=== PATIENT | male | born 1965 | race Caucasian/White ===

== ENCOUNTER 2023-06-02 01:47 | Inpatient (IN) | payer SELFPAY ==
[2023-06-02] MEDS ORDERED: NA CHLORIDE 0.9% 1,000 ML ONE ×3 (03:31→08:15)
[2023-06-02] MEDS ORDERED: KETOROLAC 30 MG/ML INJ ONE (03:31)
[2023-06-02] MEDS ORDERED: ONDANSETRON 4 MG/2 ML VIAL ONE ×4 (03:31→19:58)
[2023-06-02 03:35] LABS: Absolute Lymphocytes (CBC) 1.4 K/uL (0.7-4.9); Hematocrit 46.4 % (39.6-49.0); Lymphocytes % 11.3 % (15.3-44.8); MPV 8.9 fL (7.6-11.3); Platelets 259 thou/uL (152-406); RBC Red Blood Cell Count 5.04 M/uL (4.33-5.43)
[2023-06-02 03:46] LABS: Albumin 3.9 g/dL (3.4-5.0); Bilirubin Total 0.8 mg/dL (0.2-1.0); Potassium 3.7 mEq/L (3.5-5.1); Troponin High Sensitivity 14.4 pg/mL (<58.9)
[2023-06-02 04:42] LABS: Renal Epithelial <5 /HPF (None Seen); Specific Gravity 1.018 (1.005-1.030); Urine Bacteria None Seen /HPF (<20); Urine Bilirubin NEGATIVE (Negative); Urine Blood 1+ (Negative); Urine Clarity Clear (Clear); Urine Color Light-Yellow (Yellow); Urine Glucose NEGATIVE (Negative); Urine Protein NEGATIVE (Negative); Urine RBC <5 /HPF (None Seen); Urine Urobilinogen Normal (Normal)
--- NOTE | 2023-06-02 05:19 | EDPHYS ---
Physician Documentation [facility] Name: Jared Antoine Jr Age: 58 yrs Sex: Male : 1965 Arrival Date: 06/02/2023 Time: 01:47 Bed 14 Private MD: ED Physician Wally Valenzuela HPI: 06/02 02:55 This 58 yrs old Male presents to ER via Ambulatory with complaints of sp4 Abdominal Pain. 03:21 Male with history of hypertension on presents with acute onset of abdominal sp4 pain that is diffuse starting 3 days ago on Wednesday. Patient reports associated nausea bloating and initially upper abdominal pain that moved to the lower abdomen. Denied any fever or vomiting. Takes Sudafed and Tylenol as needed. Pain at this time is 6 out of 10 on a scale.. Historical: - Allergies: 02:23 No Known Allergies; jj7 - PMHx: 02:23 Hypertensive disorder; jj7 - PSHx: 02:23 BILAT KNEE; LEFT ELBOW; RIGHT ROTATOR CUFF; jj7 - Immunization history:: Adult Immunizations Client reports receiving the 2nd dose of the Covid vaccine. - Social history:: Smoking status: Patient denies any tobacco usage or history of. Patient/guardian denies using alcohol, street drugs. - Family history:: not pertinent. ROS: 03:21 Constitutional: Negative for fever, chills, and weight loss, Abdomen/GI: Positive sp4 abdominal pain positive bloating positive nausea negative vomiting negative diarrhea negative constipation negative bloody stools 03:21 All other systems are negative, Exam: 03:21 Constitutional: This is a well developed, well nourished patient who is awake, alert, sp4 and in no acute distress. Head/Face: Normocephalic, atraumatic. Eyes: Pupils equal round and reactive to light, extra-ocular motions intact. Lids and lashes normal. Conjunctiva and sclera are not injected. Cornea within normal limits. Periorbital areas with no swelling, redness, or edema. ENT: Nares patent. No nasal discharge, no septal abnormalities noted. Tympanic membranes are normal and external auditory canals are clear. Oropharynx with no redness, swelling, or masses, exudates, or evidence of obstruction, uvula midline. Mucous membranes moist. Neck: Trachea midline, no thyromegaly or masses palpated, and no cervical lymphadenopathy. Supple, full range of motion without nuchal rigidity, or vertebral point tenderness. Chest/axilla: Normal chest wall appearance and motion. Nontender with no deformity. No lesions are appreciated. Cardiovascular: Regular rate and rhythm with a normal S1 and S2. No gallops, murmurs, or rubs. Normal PMI, no JVD. No pulse deficits. Respiratory: Lungs have equal breath sounds bilaterally, clear to auscultation and percussion. No rales, rhonchi or wheezes noted. No increased work of breathing, no retractions or nasal flaring. Abdomen/GI: Soft, with normal bowel sounds. No distension or tympany. No guarding or rebound. Minimal tenderness diffusely Back: No spinal tenderness. No costovertebral tenderness. Skin: Warm, dry with normal turgor. Normal color with no rashes, no lesions, and no evidence of cellulitis. MS/ Extremity: Pulses equal, no cyanosis. Neurovascular intact. Full, normal range of motion. Neuro: Awake and alert, GCS 15, oriented to person, place, time, and situation. Cranial nerves II-XII grossly intact. Motor strength 5/5 in all extremities. Sensory grossly intact. Psych: Awake, alert, with orientation to person, place and time. Behavior, mood, and affect are within normal limits 03:21 ECG was reviewed by the Attending Physician. EKG time 0 318, normal sinus rhythm with a rate of 86, no ST elevation or depression, no ectopy. Vital Signs: 02:21 BP 157 / 108; Pulse 100; Resp 20; Temp 98.3; Pulse Ox 100% ; Weight 95.25 kg; Height 5 jj7 ft. 11 in. ; Pain 7/10; 03:49 BP 145 / 86; Pulse 78; Resp 16; Pulse Ox 100% on R/A; nw1 04:46 BP 146 / 84; Pulse 72; Resp 15; Pulse Ox 100% on R/A; nw1 05:26 BP 147 / 91; Pulse 79; Resp 15 S; Pulse Ox 100% on R/A; nw1 02:21 Body Mass Index 29.29 (95.25 kg, 180.34 cm) [facility] 02:21 Pain Scale: Adult [facility] Nirav Coma Score: 03:59 Eye Response: spontaneous(4). Motor Response: obeys commands(6). Verbal Response: nw1 oriented(5). Total: 15. MDM: 02:49 Patient medically screened. sp4 05:09 ED course: CT - Performed on: 06/02/2023 at 4:08 AM. Comparison: No prior studies were sp4 available for comparison. FINDINGS: Lung bases: The lung bases are clear. There is minimal bibasilar atelectasis and/or fibrosis. Liver: The liver is mildly enlarged and measures approximately 19 cm in craniocaudal dimension. There are multiple sharply marginated hypodense hepatic mass lesions most likely representing incidental hepatic cysts. The largest measures approximately 2.5 x 2.3 cm along the lateral aspect of the right hepatic lobe. Liver attenuation is otherwise within normal limits. The hepatic and portal veins are patent. Spleen:The spleen is normal in size, configuration and attenuation. Gallbladder and bile duct: The gallbladder is well distended and unremarkable. There is no biliary ductal dilatation. Pancreas: The pancreas is grossly normal in size and configuration. There appears to be mild peripancreatic inflammation and edema surrounding the head of the pancreas which can be seen with acute pancreatitis. Correlate with laboratory analysis. Adrenal Glands:The adrenal glands are normal in size and configuration. Kidneys:The kidneys are normal in size and configuration. There is no evidence of hydronephrosis. There is no evidence of nephrolithiasis. No definite solid or cystic renal mass lesions are identified. Stomach:The stomach is grossly normal. There is a small hiatal hernia. Bowel:The bowel gas pattern is non specific and non obstructive. There is inflammation surrounding the transverse portion of the duodenum which may be due to adjacent inflammatory changes surrounding the head of the pancreas. There is moderate fecal residue in the right hemicolon. There is occasional sigmoid colon diverticulosis. There is a normal-appearing epiploic appendage along the posterior wall of the sigmoid colon (series 201, image 74). Appendix: The appendix is normal. Free air:There is no evidence of free air. Free fluid: There is questionable trace free fluid in the posterior left lower quadrant. Vasculature: The aorta is normal in caliber and contour. The inferior vena cava is grossly unremarkable. Lymphadenopathy: No pathologic lymphadenopathy is identified. Bladder: The bladder is well distended and smooth in contour. Reproductive: The prostate gland is grossly within normal limits. [facility] [address], [facility] [phone] Fax: Final Radiology Report Name: JARED ANTOINE Age: 58y Date: 06/02/2023 3:01 AM : 1965 Study: Abdomen Pelvis W Contrast Requesting Physician: Wally Valenzuela Bones: No acute osseous abnormalities are identified. Soft tissues: No acute soft tissue abnormalities are identified. There is a fat-containing left inguinal hernia. IMPRESSION: 1. There appears to be mild peripancreatic inflammation and edema surrounding the head of the pancreas which can be seen with acute pancreatitis. Correlate with laboratory analysis. 2. Inflammation surrounding the transverse portion of the duodenum likely due to adjacent inflammatory changes surrounding the head of the pancreas. 3. Mild hepatomegaly and multiple incidental hepatic cysts. 4. Small sliding-type hiatal hernia. 5. Occasional sigmoid colon diverticulosis. 6. Fat-containing left inguinal hernia. 7. Moderate fecal residue throughout the right hemicolon. 8. Normal-appearing epiploic appendage along the posterior wall of the sigmoid colon. Correlate for focal pain in the left lower quadrant. Electronically signed by: Bhavana Reddy DO 06/02/2023 4:57. 05:19 Differential Diagnosis altered mental status, sepsis, flu. Data reviewed: vital signs, sp4 nurses notes, old medical records, lab test result(s), EKG, radiologic studies, CT scan, ultrasound. 07:01 Consideration of Admission/Observation Patient was admitted/placed on observation. sp4 Escalation of care including admission/observation considered. Management of patient was discussed with the following: Hospitalist: Admission team . ED course: US - TECHNIQUE: Real-time ultrasound of the right upper quadrant with image documentation. COMPARISON: CT abdomen pelvis June 02, 2023. FINDINGS: Gallbladder: No cholelithiasis or sludge. Common bile duct: Unremarkable as visualized. No stones. No dilation. Pancreas: Pancreas is unremarkable as visualized, limited. IMPRESSION: No cholelithiasis or sludge.. 06/02 02:49 Order name: CBC with Diff; Complete Time: 04:21 sp4 06/02 02:49 Order name: CMP; Complete Time: 04:21 sp4 06/02 02:49 Order name: Lipase; Complete Time: 04:21 4 06/02 02:49 Order name: Urinalysis w/ reflexes; Complete Time: 05:09 4 06/02 03:01 Order name: Creatine Phosphokinase; Complete Time: 04:21 4 06/02 03:01 Order name: CRP; Complete Time: 04:21 4 06/02 03:01 Order name: BNP; Complete Time: 04:21 [facility] 06/02 03:01 Order name: Troponin High Sensitivity; Complete Time: 04:21 [facility] 06/02 09:10 Order name: Triglycerides Level [facility] 06/02 10:34 Order name: Troponin High Sensitivity [facility] 06/02 15:19 Order name: Creatine Phosphokinase [facility] 06/02 15:19 Order name: Troponin High Sensitivity [facility] 06/02 03:01 Order name: CT Abd/Pelvis - IV Contrast Only [facility] 06/02 05:16 Order name: US Abdomen Limited [facility] 06/02 03:01 Order name: EKG; Complete Time: 03:02 [facility] 06/02 02:49 Order name: IV Saline Lock; Complete Time: 03:20 [facility] 06/02 02:49 Order name: Labs collected and sent; Complete Time: 03:20 [facility] 06/02 03:01 Order name: EKG - Nurse/Tech; Complete Time: 03:20 4 EC:21 Rate is 86 beats/min. Rhythm is regular, Normal Sinus Rhythm. QRS [place] is Normal. [place] sp4 interval is normal. QRS interval is normal. QT interval is normal. No Q waves. T waves are Normal. No ST changes noted. Clinical impression: Normal ECG. Interpreted by me. Reviewed by me. Administered Medications: 03:22 Drug: Ketorolac IVP 30 mg IVP once Route: IVP; Site: right antecubital; bp 05:27 Follow up: Response: No adverse reaction nw1 03:23 Drug: Ondansetron IVP 4 mg IVP once; over 2 minutes Route: IVP; Site: right antecubital;bp 05:27 Follow up: Response: No adverse reaction nw1 03:23 Drug: NS 0.9% IV 1000 ml IV at 1 bolus Per protocol; 1000 mL bolus Route: IV; Rate: 1 bp bolus; Site: right antecubital; 05:27 Follow up: Response: No adverse reaction; IV Status: Completed infusion nw1 05:26 Drug: NS 0.9% IV 1000 ml IV at 1 bolus Per protocol; 1000 mL bolus Route: IV; Rate: 1 nw1 bolus; Site: right antecubital; Disposition Summary: 06/02/23 05:19 Hospitalization Ordered Notes: Hospitalization Status: Inpatient Admission sp4 Condition: Stable sp4 Problem: new sp4 Symptoms: have improved sp4 Bed/Room Type: Standard sp4 Provider: Chandler Escalante(06/02/23 05:54) sp4 Location: Telemetry/MedSurg (Inpatient)(06/02/23 20:55) eb1 Room Assignment: [facility](06/02/23 20:55) eb1 Diagnosis - Acute pancreatitis sp4 Forms: - Medication Reconciliation Form sp4 - SBAR form sp4 - Leadership Thank You Letter sp4 Signatures: Dispatcher [employer] EDMS Raymond Hua, RN RN Liset Valdez RN RN eb1 Ranjana Allison RN RN jj7 Potepalov, Sergey, MD MD sp4 Jaquelin Reyes RN RN nw1 Corrections: (The following items were deleted from the chart) 02:25 02:23 PMHx: None; jj7 jj7 05:54 05:19 [facility] sp4 sp4 06:13 05:19 Telemetry/MedSurg (Inpatient) sp4 eb1 06:13 05:19 sp4 eb1 20:55 06:13 [facility] ER HOLD eb1 eb1 20:55 06:13 ERHOLD- eb1 eb1
--- NOTE | 2023-06-02 05:19 | ER ---
Nurse's Notes [facility] Name: Damaso Coleman Jr Age: 58 yrs Sex: Male : 1965 Arrival Date: 06/02/2023 Time: 01:47 Bed 14 Private MD: Diagnosis: Acute pancreatitis Presentation: 06/02 02:21 Chief complaint: Patient states: ABD PAIN STARTED WEDNESDAY. PAIN ALL OVER ABD AND FEELS jj7 BLOATED. NO N/V/D. Coronavirus screen: At this time, the client does not indicate any symptoms associated with coronavirus-19. Ebola Screen: No symptoms or risks identified at this time. Initial Sepsis Screen: Does the patient meet any 2 criteria? HR > 90 bpm. Yes Does the patient have a suspected source of infection? No. Patient's initial sepsis screen is negative. Risk Assessment: Do you want to hurt yourself or someone else? Patient reports no desire to harm self or others. Onset of symptoms was May 30, 2023. 02:21 Method Of Arrival: Ambulatory [facility] 02:21 Acuity: HARVINDER 3 jj7 Triage Assessment: 02:23 General: Appears in no apparent distress. comfortable, Behavior is calm, cooperative, jj7 appropriate for age. Pain: Complains of pain in abdomen Pain currently is 6 out of 10 on a pain scale. at worst was 9 out of 10 on a pain scale. GI: Abdomen is distended, Last BM was May 30, 2023. Last meal was June 01, 2023. Historical: - Allergies: 02:23 No Known Allergies; jj7 - PMHx: 02:23 Hypertensive disorder; jj7 - PSHx: 02:23 BILAT KNEE; LEFT ELBOW; RIGHT ROTATOR CUFF; jj7 - Immunization history:: Adult Immunizations Client reports receiving the 2nd dose of the Covid vaccine. - Social history:: Smoking status: Patient denies any tobacco usage or history of. Patient/guardian denies using alcohol, street drugs. - Family history:: not pertinent. Screenin:27 [facility] ED Fall Risk Assessment (Adult) History of falling in the last 3 months, jj7 including since admission No falls in past 3 months (0 pts) Confusion or Disorientation No (0 pts) Intoxicated or Sedated No (0 pts) Impaired Gait No (0 pts) Mobility Assist Device Used No (0 pt) Altered Elimination No (0 pt) Score/Fall Risk Level 0 - 2 = Low Risk Oriented to surroundings, Maintained a safe environment. Abuse screen: Denies threats or abuse. Nutritional screening: No deficits noted. Tuberculosis screening: No symptoms or risk factors identified. Assessment: 02:27 Reassessment: SEE TRIAGE ASSESSMENT. j7 03:50 Reassessment: Report received from Raymond RN, CN. Introductions made and POC reviewed nw1 with patient. Pt assessed. 03:59 Reassessment: Pt to CT via wheelchair at this time. General: Appears in no apparent nw1 distress. comfortable, well groomed, well developed, well nourished, Behavior is calm, cooperative, appropriate for age. Pain: Complains of pain in abdomen Alleviated by medications, rest, Aggravated by eating, drinking, increased activity. Cardiovascular: No deficits noted. Respiratory: No deficits noted. GI: Abdomen is tender to palpation X 4 quads. GI: Bowel sounds Reports bloating, intolerance of fluids, intolerance of food, nausea, vomiting. :. Derm: No deficits noted. No signs and/or symptoms reported regarding the dermatologic system. Musculoskeletal: No deficits noted. No signs and/or symptoms reported regarding the musculoskeletal system. Vital Signs: 02:21 BP 157 / 108; Pulse 100; Resp 20; Temp 98.3; Pulse Ox 100% ; Weight 95.25 kg; Height 5 jj7 ft. 11 in. ; Pain 7/10; 03:49 BP 145 / 86; Pulse 78; Resp 16; Pulse Ox 100% on R/A; nw1 04:46 BP 146 / 84; Pulse 72; Resp 15; Pulse Ox 100% on R/A; nw1 05:26 BP 147 / 91; Pulse 79; Resp 15 S; Pulse Ox 100% on R/A; nw1 02:21 Body Mass Index 29.29 (95.25 kg, 180.34 cm) jj7 02:21 Pain Scale: Adult jj7 [place] Coma Score: 03:59 Eye Response: spontaneous(4). Motor Response: obeys commands(6). Verbal Response: nw1 oriented(5). Total: 15. ED Course: 01:50 Patient arrived in ED. jj6 02:23 Triage completed. jj7 02:23 Arm band placed on left wrist. jj7 02:49 Wally Valenzuela MD is Attending Physician. sp4 03:14 Raymond Hua, KALIE is Primary Nurse. bp 03:17 Inserted saline lock: 20 gauge in right antecubital area, using aseptic technique. rv1 Blood collected. 03:20 Troponin High Sensitivity Sent. rv1 03:20 BNP Sent. rv1 03:20 CRP Sent. rv1 03:20 Creatine Phosphokinase Sent. rv1 03:20 CBC with Diff Sent. rv1 03:20 CMP Sent. rv1 03:20 Lipase Sent. rv1 03:51 Patient has correct armband on for positive identification. Placed in gown. Bed in low nw1 position. Call light in reach. Side rails up X2. Provided Education on: POC. 03:51 Client placed on continuous cardiac and pulse oximetry monitoring. NIBP monitoring nw1 applied. 03:51 No provider procedures requiring assistance completed. IV is patent, is intact, with nw1 fluids infusing freely, with good blood return. 04:13 CT Abd/Pelvis - IV Contrast Only In Process Unspecified. EDMS 05:17 Magdi Fernandez MD is Hospitalizing Provider. sp4 05:53 Hospitalizing Provider role handed off by Magdi Fernandez MD sp4 05:53 Chandler Escalante is Hospitalizing Provider. sp4 05:56 US Abdomen Limited In Process Unspecified. EDMS 07:01 Patient admitted, IV remains in place. nw1 Administered Medications: 03:22 Drug: Ketorolac IVP 30 mg IVP once Route: IVP; Site: right antecubital; bp 05:27 Follow up: Response: No adverse reaction nw1 03:23 Drug: Ondansetron IVP 4 mg IVP once; over 2 minutes Route: IVP; Site: right antecubital;bp 05:27 Follow up: Response: No adverse reaction nw1 03:23 Drug: NS 0.9% IV 1000 ml IV at 1 bolus Per protocol; 1000 mL bolus Route: IV; Rate: 1 bp bolus; Site: right antecubital; 05:27 Follow up: Response: No adverse reaction; IV Status: Completed infusion nw1 05:26 Drug: NS 0.9% IV 1000 ml IV at 1 bolus Per protocol; 1000 mL bolus Route: IV; Rate: 1 nw1 bolus; Site: right antecubital; Medication: 02:27 VIS not applicable for this client. jj7 Outcome: 05:19 Decision to Hospitalize by Provider. sp4 07:01 Admitted to ER Hold. Please see [facility] for further documentation. nw1 07:01 Condition: stable 07:01 Condition: stable 07:01 Instructed on the need for admit, 23:52 Patient left the ED. kl Signatures: Dispatcher [employer] EDMS Nasreen Forman RN RN Raymond Cortez RN RN Clementina Wilks [email or web address] Ranjana Allison RN RN jj7 Nila Segovia rv1 Wally Valenzuela MD MD sp4 Jaquelin Reyes RN RN nw1 Corrections: (The following items were deleted from the chart) 02:25 02:23 PMHx: None; jj7 jj7
--- NOTE | 2023-06-02 05:46 | P.HP ---
Certification for Inpatient Patient admitted to: Inpatient With expected LOS: <2 Midnights Patient will require the following post-hospital care: None Practitioner: I am a practitioner with admitting privileges, knowledge of patient current condition, hospital course, and medical plan of care. Services: Services provided to patient in accordance with Admission requirements found in Title 42 Section 412.3 of the Code of Federal Regulations Patient History Date of Service: 06/02/23 Reason for admission: Abdominal pain History of Present Illness: 58-year-old male with a past medical history of hypertension, presents to the emergency room with abdominal pain. He reports abdominal pain started 3 days ago, is progressively getting worse. He reports associated nausea, bloating. He reports lower abdominal pain., Nonradiating, no reported fever, vomiting. No reported use of alcohol. He denies chest pain, shortness of breath dizziness. Plan to admit for acute pancreatitis. Laboratory evaluation WBCs 12.80, early left shift 78.3, mild hyponatremia 133, BUN and creatinine normal, CRP elevated at 104.00, lipase normal at 26. UA normal EKG normal sinus rhythm a [address] CT of the abdomen pelvis CT - Performed on: 06/02/2023 at 4:08 AM. Comparison: No prior studies were available for comparison. FINDINGS: Lung bases: The lung bases are clear. There is minimal bibasilar atelectasis and/or fibrosis. Liver: The liver is mildly enlarged and measures approximately 19 cm in craniocaudal dimension. There are multiple sharply marginated hypodense hepatic mass lesions most likely representing incidental hepatic cysts. The largest measures approximately 2.5 x 2.3 cm along the lateral aspect of the right hepatic lobe. Liver attenuation is otherwise within normal limits. The hepatic and portal veins are patent. Spleen:The spleen is normal in size, configuration and attenuation. Gallbladder and bile duct: The gallbladder is well distended and unremarkable. There is no biliary ductal dilatation. Pancreas: The pancreas is grossly normal in size and configuration. There appears to be mild peripancreatic inflammation and edema surrounding the head of the pancreas which can be seen with acute pancreatitis. Correlate with laboratory analysis. Adrenal Glands:The adrenal glands are normal in size and configuration. Kidneys:The kidneys are normal in size and configuration. There is no evidence of hydronephrosis. There is no evidence of nephrolithiasis. No definite solid or cystic renal mass lesions are identified. Stomach:The stomach is grossly normal. There is a small hiatal hernia. Bowel:The bowel gas pattern is non specific and non obstructive. There is inflammation surrounding the transverse portion of the duodenum which may be due to adjacent inflammatory changes surrounding the head of the pancreas. There is moderate fecal residue in the right hemicolon. There is occasional sigmoid colon diverticulosis. There is a normal-appearing epiploic appendage along the posterior wall of the sigmoid colon (series 201, image 74). Appendix: The appendix is normal. Free air:There is no evidence of free air. Free fluid: There is questionable trace free fluid in the posterior left lower quadrant. Vasculature: The aorta is normal in caliber and contour. The inferior vena cava is grossly unremarkable. Ly mphadenopathy: No pathologic lymphadenopathy is identified. Bladder: The bladder is well distended and smooth in contour. Reproductive: The prostate gland is grossly within normal limits - Past Medical/Surgical History -: Hypertension - Social History CD- Drugs: No Caffeine use: Yes Place of Residence: Home Review of Systems 10-point ROS is otherwise unremarkable Physical Examination - Studies Laboratory Data (last 24 hrs) 06/02/23 06/02/23 03:17 03:17 WBC 12.80 H Hgb 15.7 Hct 46.4 Plt Count 259 Sodium 133 L Potassium 3.7 BUN 11 Creatinine 1.16 Glucose 127 H Total Bilirubin 0.8 AST 9 L ALT 24 Alkaline Phosphatase 59 Lipase 26 Assessment and Plan - Plan Assessment and plan acute pancreatitis IV fluids, as needed analgesics, IV antibiotics, trend lipase, triglycerides ordered Hypertension Resume appropriate home medications Diet n.p.o. Full code DVT Lovenox Laboratory evaluation WBCs 12.80, early left shift 78.3, mild hyponatremia 133, BUN and creatinine normal, CRP elevated at 104.00, lipase normal at 26. UA normal EKG normal sinus rhythm a [address] wave abnormality. CT of the abdomen pelvis CT - Performed on: 06/02/2023 at 4:08 AM. Comparison: No prior studies were available for comparison. FINDINGS: Lung bases: The lung bases are clear. There is minimal bibasilar atelectasis and/or fibrosis. Liver: The liver is mildly enlarged and measures approximately 19 cm in craniocaudal dimension. There are multiple sharply marginated hypodense hepatic mass lesions most likely representing incidental hepatic cysts. The largest measures approximately 2.5 x 2.3 cm along the lateral aspect of the right hepatic lobe. Liver attenuation is otherwise within normal limits. The hepatic and portal veins are patent. Spleen:The spleen is normal in size, configuration and attenuation. Gallbladder and bile duct: The gallbladder is well distended and unremarkable. There is no biliary ductal dilatation. Pancreas: The pancreas is grossly normal in size and configuration. There appears to be mild peripancreatic inflammation and edema surrounding the head of the pancreas which can be seen with acute pancreatitis. Correlate with laboratory analysis. Adrenal Glands:The adrenal glands are normal in size and configuration. Kidneys:The kidneys are normal in size and configuration. There is no evidence of hydronephrosis. There is no evidence of nephrolithiasis. No definite solid or cystic renal mass lesions are identified. Stomach:The stomach is grossly normal. There is a small hiatal hernia. Bowel:The bowel gas pattern is non specific and non obstructive. There is inflammation surrounding the transverse portion of the duodenum which may be due to adjacent inflammatory changes surrounding the head of the pancreas. There is moderate fecal residue in the right hemicolon. There is occasional sigmoid colon diverticulosis. There is a normal-appearing epiploic appendage along the posterior wall of the sigmoid colon (series 201, image 74). Appendix: The appendix is normal. Free air:There is no evidence of free air. Free fluid: There is questionable trace free fluid in the posterior left lower quadrant. Vasculature: The aorta is normal in caliber and contour. The inferior vena cava is grossly unremarkable. Lymphadenopathy: No pathologic lymphadenopathy is identified. Bladder: The bladder is well distended and smooth in contour. Reproductive: The prostate gland is grossly within normal limits Discharge Plan: Home Plan to discharge in: 48 Hours - Advance Directives Does patient have a Living Will: No Does patient have a Durable POA for Healthcare: No - Code Status/Comfort Care Code Status: Full Code Physician Review: Patient Assessed, Agree with Above Assessment and Plan Critical Care: No Time Spent Managing Pts Care (In Minutes): 50
--- NOTE | 2023-06-02 06:08 | P.HP ---
Certification for Inpatient Patient admitted to: Observation With expected LOS: >2 Midnights Patient will require the following post-hospital care: None Practitioner: I am a practitioner with admitting privileges, knowledge of patient current condition, hospital course, and medical plan of care. Services: Services provided to patient in accordance with Admission requirements found in Title 42 Section 412.3 of the Code of Federal Regulations <Emely Benavides - Last Filed: 06/02/23 15:44> Patient History Date of Service: 06/02/23 Reason for admission: Abdominal pain History of Present Illness: Damaso Coleman is a 58-year-old male with a past medical history of hypertension, presents to the emergency room with abdominal pain. He reports abdominal pain started 3 days ago, is progressively getting worse. He reports associated nausea, bloating. He reports lower abdominal pain, Nonradiating, no reported fever, vomiting. No reported use of alcohol. He denies chest pain, shortness of breath dizziness. Plan to admit for acute pancreatitis. Laboratory evaluation WBCs 12.80, early left shift 78.3, mild hyponatremia 133, BUN and creatinine normal, CRP elevated at 104.00, lipase normal at 26. UA normal EKG normal sinus rhythm a 86 [address] wave abnormality. CT of the abdomen pelvis CT - Performed on: 06/02/2023 at 4:08 AM. Comparison: No prior studies were available for comparison. FINDINGS: Lung bases: The lung bases are clear. There is minimal bibasilar atelectasis and/or fibrosis. Liver: The liver is mildly enlarged and measures approximately 19 cm in craniocaudal dimension. There are multiple sharply marginated hypodense hepatic mass lesions most likely representing incidental hepatic cysts. The largest measures approximately 2.5 x 2.3 cm along the lateral aspect of the right hepatic lobe. Liver attenuation is otherwise within normal limits. The hepatic and portal veins are patent. Spleen:The spleen is normal in size, configuration and attenuation. Gallbladder and bile duct: The gallbladder is well distended and unremarkable. There is no biliary ductal dilatation. Pancreas: The pancreas is grossly normal in size and configuration. There appears to be mild peripancreatic inflammation and edema surrounding the head of the pancreas which can be seen with acute pancreatitis. Correlate with laboratory analysis. Adrenal Glands:The adrenal glands are normal in size and configuration. Kidneys:The kidneys are normal in size and configuration. There is no evidence of hydronephrosis. There is no evidence of nephrolithiasis. No definite solid or cystic renal mass lesions are identified. Stomach:The stomach is grossly normal. There is a small hiatal hernia. Bowel:The bowel gas pattern is non specific and non obstructive. There is inflammation surrounding the transverse portion of the duodenum which may be due to adjacent inflammatory changes surrounding the head of the pancreas. There is moderate fecal residue in the right hemicolon. There is occasional sigmoid colon diverticulosis. There is a normal-appearing epiploic appendage along the posterior wall of the sigmoid colon (series 201, image 74). Appendix: The appendix is normal. Free air:There is no evidence of free air. Free fluid: There is questionable trace free fluid in the posterior left lower quadrant. Vasculature: The aorta is normal in caliber and contour. The inferior vena cava is grossly unremarkable. Lymphadenopathy: No pathologic lymphadenopathy is identified. Bladder: The bladder is well distended and smooth in contour. Reproductive: The prostate gland is grossly within normal limits - Past Medical/Surgical History -: Hypertension - Social History CD- Drugs: No Caffeine use: Yes Place of Residence: Home <Emely Benavides - Last Filed: 06/02/23 15:44> Date of Service: 06/03/23 <steve huber - Last Filed: 06/03/23 17:22> Allergies No Known Allergies Allergy (Unverified 06/02/23 07:23) Home Medications: Nebivolol HCl [Bystolic*] DAILY 06/02/23 Review of Systems General: Unremarkable Eyes: Unremarkable ENT: Unremarkable Respiratory: Unremarkable Cardiovascular: Unremarkable Gastrointestinal: Nausea, Abdominal Pain, Distention Genitourinary: Unremarkable Musculoskeletal: Unremarkable Integumentary: Unremarkable Neurological: Unremarkable <Emely Benavides - Last Filed: 06/02/23 15:44> Physical Examination - Physical Exam General: Alert, In no apparent distress, Oriented x3 HEENT: Atraumatic, Normocephalic, PERRLA Neck: Supple, 2+ carotid pulse no bruit, JVD not distended Respiratory: Clear to auscultation bilaterally, Normal air movement Cardiovascular: No edema, Normal pulses, Regular rate/rhythm, Normal S1 S2 Capillary refill: <2 Seconds Gastrointestinal: Normal bowel sounds, Soft and benign, Distended Musculoskeletal: No clubbing, No swelling, No contractures Integumentary: No rashes, No breakdown Neurological: Normal speech, Normal strength at 5/5 x4 extr, Normal tone - Studies Laboratory Data (last 24 hrs) 06/02/23 06/02/23 03:17 03:17 WBC 12.80 H Hgb 15.7 Hct 46.4 Plt Count 259 Sodium 133 L Potassium 3.7 BUN 11 Creatinine 1.16 Glucose 127 H Total Bilirubin 0.8 AST 9 L ALT 24 Alkaline Phosphatase 59 Lipase 26 <Emely Benavides - Last Filed: 06/02/23 15:44> Assessment and Plan - Plan Assessment and plan acute pancreatitis Sigmoid diverticulosis Leukocytosis WBC 12.8 IV fluids given in ED, will hold for now with CHF in his history analgesics IV antibiotics trend lipase triglycerides ordered CT abd/pelvis noted pancreatic inflammation and edema C reactive protien 104 Hyponatermia Na133 IVF given in ED Monitor in AM labs Hypertension Resume appropriate home medications Hepatic masses Hiatal hernia noted on CT follow as outpatient Diet n.p.o. Full code DVT Lovenox Discharge Plan: Home Plan to discharge in: 48 Hours - Advance Directives Does patient have a Living Will: No Does patient have a Durable POA for Healthcare: No Physician Review: Patient Assessed, Agree with Above Assessment and Plan Time Spent Managing Pts Care (In Minutes): 55 <Emely Benavides - Last Filed: 06/02/23 15:44> - Plan Acute pancreatitis-unknown etiology. No gallstones. Patient denies alcohol use Lipase level is normal Associated plan duodenal. Clear liquid Supportive measures with IV fluid, analgesics and antiemetics as needed. Monitor lipase level Check triglyceride level. <steve huber - Last Filed: 06/03/23 17:22>
[2023-06-02] MEDS ORDERED: NA CHLORIDE 0.9% 1,000 ML IV SCH ×2 (07:00→08:00)
[2023-06-02] MEDS ORDERED: MORPHINE 4 MG/ML SYR IM PRN (07:44)
[2023-06-02 07:47] VITALS: BMI 29.1
[2023-06-02] MEDS ORDERED: MORPHINE 2 MG/ML SYR ONE ×4 (08:14→19:58)
[2023-06-02] MEDS ORDERED: METRONIDAZOLE 500mg IVPB 500 MG/100 ML BAG IV ONE ×2 (08:15→16:48)
[2023-06-02] MEDS: MORPHINE 2 MG/ML SYR IV PRN ×4 (08:15→20:10)
[2023-06-02] MEDS: METRONIDAZOLE 500mg IVPB 500 MG/100 ML BAG IV SCH ×2 (08:16→16:37)
[2023-06-02] MEDS: ONDANSETRON 4 MG/2 ML VIAL IV PRN ×3 (08:16→21:56)
--- NOTE | 2023-06-02 08:52 | RAD REPORT ---
EXAM DESCRIPTION: US Abdomen Limited, Gallbladder CLINICAL HISTORY: The patient is 58 years old and is Male; acute pancreatitis TECHNIQUE: Real-time ultrasound of the right upper quadrant with image documentation. COMPARISON: CT abdomen pelvis June 02, 2023. FINDINGS: Gallbladder: No cholelithiasis or sludge. Common bile duct: Unremarkable as visualized. No stones. No dilation. Pancreas: Pancreas is unremarkable as visualized, limited. IMPRESSION: No cholelithiasis or sludge. Electronically signed by: Dolly Reyes MD 06/02/2023 6:12 AM CDT Due to temporary technical issues with the PACS/Fluency reporting system, reports are being signed by the in house radiologists without review as a courtesy to insure prompt reporting. The interpreting radiologist is fully responsible for the content of the report.
--- NOTE | 2023-06-02 08:54 | RAD REPORT ---
EXAM DESCRIPTION: CT abdomen and pelvis with IV contrast CLINICAL HISTORY: 58 years Male ABD PAIN TECHNIQUE: Axial CT imaging of the abdomen and pelvis was performed following the administration of intravenous contrast.. Oral contrast was not administered. Sagittal and coronal reconstructed image s were then performed. The CT study is performed according to ALARA (as low as reasonably achievabl e) or ALARA/IMAGE GENTLY, with automatic adjustment of mA and/or kV according to patient size. Performed on: 06/02/2023 at 4:08 AM. COMPARISON: No prior studies were available for comparison. FINDINGS: Lung bases: The lung bases are clear. There is minimal bibasilar atelectasis and/or fibros is. Liver: The liver is mildly enlarged and measures approximately 19 cm in craniocaudal dimension. There are multiple sharply marginated hypodense hepatic mass lesions most likely representing incidental h epatic cysts. The largest measures approximately 2.5 x 2.3 cm along the lateral aspect of the right h epatic lobe. Liver attenuation is otherwise within normal limits. The hepatic and portal veins are pa tent. Spleen: The spleen is normal in size, configuration and attenuation. Gallbladder and bile duct: The gallbladder is well distended and unremarkable. There is no biliary ductal dilatation. Pancreas: The pancreas is grossly normal in size and configuration. There appears to be mild peripanc reatic inflammation and edema surrounding the head of the pancreas which can be seen with acute pancr eatitis. Correlate with laboratory analysis. Adrenal Glands: The adrenal glands are normal in size and configuration. Kidneys: The kidneys are normal in size and configuration. There is no evidence of hydronephrosis. Th ere is no evidence of nephrolithiasis. No definite solid or cystic renal mass lesions are identified. Stomach: The stomach is grossly normal. There is a small hiatal hernia. Bowel: The bowel gas pattern is non specific and non obstructive. There is inflammation surrounding t he transverse portion of the duodenum which may be due to adjacent inflammatory changes surrounding t he head of the pancreas. There is moderate fecal residue in the right hemicolon. There is occasional sigmoid colon diverticulosis. There is a normal-appearing epiploic appendage along the posterior wall of the sigmoid colon (series 201, image 74). Appendix: The appendix is normal. Free air: There is no evidence of free air. Free fluid: There is questionable trace free fluid in the posterior left lower quadrant. Vasculature: The aorta is normal in caliber and contour. The inferior vena cava is grossly unremarkab le. Lymphadenopathy: No pathologic lymphadenopathy is identified. Bladder: The bladder is well distended and smooth in contour. Reproductive: The prostate gland is grossly within normal limits. Bones: No acute osseous abnormalities are identified. Soft tissues: No acute soft tissue abnormalities are identified. There is a fat-containing left ingui nal hernia. IMPRESSION: 1. There appears to be mild peripancreatic inflammation and edema surrounding the head of the pancreas which can be seen with acute pancreatitis. Correlate with laboratory analysis. 2. Inflammation surrounding the transverse portion of the duodenum likely due to adjacent inflammat ory changes surrounding the head of the pancreas. 3. Mild hepatomegaly and multiple incidental hepatic cysts. 4. Small sliding-type hiatal hernia. 5. Occasional sigmoid colon diverticulosis. 6. Fat-containing left inguinal hernia. 7. Moderate fecal residue throughout the right hemicolon. 8. Normal-appearing epiploic appendage along the posterior wall of the sigmoid colon. Correlate for focal pain in the left lower quadrant. Electronically signed by: Bhavana Reddy DO 06/02/2023 4:57 AM CDT Due to temporary technical issues with the PACS/Fluency reporting system, reports are being signed by the in house radiologists without review as a courtesy to insure prompt reporting. The interpreting radiologist is fully responsible for the content of the report.
[2023-06-02 15:19] LABS: Troponin High Sensitivity 14.2 pg/mL (<58.9)
[2023-06-02] MEDS: ENOXAPARIN 40 MG/0.4 ML SQ SCH (16:37)
[2023-06-02] MEDS ORDERED: ENOXAPARIN 40 MG/0.4 ML SQ ONE (16:48)
[2023-06-02] MEDS: SIMETHICONE 80 MG CHEWABLE TAB PO PRN (16:56)
--- NOTE | 2023-06-02 18:04 | EKG ---
Test Date: 2023-06-02 Test Time: 03:18:38 [employer]: ADELE MEASUREMENT RESULTS: Intervals: Rate: 86 TX: 132 QRSD: 98 QT: 384 QTc: 459 Higgins: P: 56 TX: 132 QRS: -23 T: 5 INTERPRETIVE STATEMENTS: Normal sinus rhythm Nonspecific T wave abnormality Abnormal ECG No previous ECG available for comparison Electronically Signed On 06-02-23 18:02:57 CDT by Chirag Gonzalez
[2023-06-02] MEDS: ACETAMINOPHEN 500 MG TAB PO PRN (19:53)
[2023-06-02] MEDS ORDERED: ACETAMINOPHEN 500 MG TAB ONE (19:57)
[2023-06-03 00:21] VITALS: O2SAT 100
[2023-06-03] MEDS: METRONIDAZOLE 500mg IVPB 500 MG/100 ML BAG IV SCH ×3 (00:24→16:20)
[2023-06-03] MEDS: MORPHINE 2 MG/ML SYR IV PRN ×5 (00:25→22:07)
[2023-06-03] MEDS: ACETAMINOPHEN 500 MG TAB PO PRN (04:04)
[2023-06-03] MEDS ORDERED: BISACODYL E.C. 5 MG TAB PO PRN (06:53)
[2023-06-03] MEDS ORDERED: INFLUENZA VACCINE (for 6+ mo) 0.5 ML DOSE IMVAC ONE (08:00)
[2023-06-03 08:37] LABS: Absolute Lymphocytes (CBC) 1.1 K/uL (0.7-4.9); Hematocrit 42.4 % (39.6-49.0); Lymphocytes % 12.1 % (15.3-44.8); MCV 91.1 fL (80-100); MPV 8.9 fL (7.6-11.3); Platelets 214 thou/uL (152-406); RBC Red Blood Cell Count 4.65 M/uL (4.33-5.43)
[2023-06-03 08:54] LABS: Magnesium 1.9 mg/dL (1.6-2.4); Potassium 4.2 mEq/L (3.5-5.1)
[2023-06-03] MEDS ORDERED: MAGNESIUM CITRATE 300 ML BOT PO ONE (09:06)
--- NOTE | 2023-06-03 11:04 | P.PN ---
Subjective Date of Service: 06/03/23 Chief Complaint: Abdominal pain Subjective: Ambulating, Doing well HPI 06/02: Damaso Coleman is a 58-year-old male with a past medical history of hypertension, presents to the emergency room with abdominal pain. He reports abdominal pain started 3 days ago, is progressively getting worse. He reports associated nausea, bloating. He reports lower abdominal pain, Nonradiating, no reported fever, vomiting. No reported use of alcohol. He denies chest pain, shortness of breath dizziness. Plan to admit for acute pancreatitis. Laboratory evaluation WBCs 12.80, early left shift 78.3, mild hyponatremia 133, BUN and creatinine normal, CRP elevated at 104.00, lipase normal at 26. UA normal EKG normal sinus rhythm a [address] of the abdomen pelvis FINDINGS: Lung bases: The lung bases are clear. There is minimal bibasilar atelectasis and/or fibrosis. Liver: The liver is mildly enlarged and measures approximately 19 cm in craniocaudal dimension. There are multiple sharply marginated hypodense hepatic mass lesions most likely repr esenting incidental hepatic cysts. The largest measures approximately 2.5 x 2.3 cm along the lateral aspect of the right hepatic lobe. Liver attenuation is otherwise within normal limits. The hepatic and portal veins are patent. Spleen:The spleen is normal in size, configuration and attenuation. Gallbladder and bile duct: The gallbladder is well distended and unremarkable. There is no biliary ductal dilatation. Pancreas: The pancreas is grossly normal in size and configuration. There appears to be mild peripancreatic inflammation and edema surrounding the head of the pancreas which can be seen with acute pancreatitis. Correlate with laboratory analysis. Adrenal Glands:The adrenal glands are normal in size and configuration. Kidneys:The kidneys are normal in size and configuration. There is no evidence of hydronephrosis. There is no evidence of nephrolithiasis. No definite solid or cystic renal mass lesions are identified. Stomach:The stomach is grossly normal. There is a small hiatal hernia. Bowel:The bowel gas pattern is non specific and non obstructive. There is inflammation surrounding the transverse portion of the duodenum which may be due to adjacent inflammatory changes surrounding the head of the pancreas. There is moderate fecal residue in the right hemicolon. There is occasional sigmoid colon diverticulosis. There is a normal-appearing epiploic appendage along the po sterior wall of the sigmoid colon (series 201, image 74). Appendix: The appendix is normal. Free air:There is no evidence of free air. Free fluid: There is questionable trace free fluid in the posterior left lower quadrant. Vasculature: The aorta is normal in caliber and contour. The inferior vena cava is grossly unremarkable. Lymphadenopathy: No pathologic lymphadenopathy is identified. Bladder: The bladder is well distended and smooth in contour. Reproductive: The prostate gland is grossly within normal limits 06/03: Damaso is awake and ambulating his room this morning. He is complaining of his distented abdomen and not having a BM in 2-[address] and US of abdomen is unremarkable for bowel but shows gas. Will start dulcolax and miralax today. He denies fever, chills, PATRICIA, CP, SOB, and N/V. <Emely Benavides - Last Filed: 06/03/23 11:09> Date of Service: 06/03/23 <steve huber - Last Filed: 06/05/23 15:13> Review of Systems Gastrointestinal: Distention <Emely Benavides - Last Filed: 06/03/23 11:09> Physical Examination - Vital Signs Temperature: 98.1 F Blood Pressure: 150/77 Pulse: 83 Respirations: 16 Pulse Ox (%): 98 <Emely Benavides - Last Filed: 06/03/23 11:09> Assessment And Plan - Plan Physical Exam General: Alert, In no apparent distress, Oriented x3 HEENT: Atraumatic, Normocephalic, PERRLA Neck: Supple, 2+ carotid pulse no bruit, JVD not distended Respiratory: Clear to auscultation bilaterally, Normal air movement Cardiovascular: No edema, Normal pulses, Regular rate/rhythm, Normal S1 S2 Capillary refill: <2 Seconds Gastrointestinal: Normal bowel sounds, Soft and benign, Distended Musculoskeletal: No clubbing, No swelling, No contractures Integumentary: No rashes, No breakdown Neurological: Normal speech, Normal strength at 5/5 x4 extr, Normal tone Assessment and plan acute pancreatitis Sigmoid diverticulosis Leukocytosis WBC 12.8 IV fluids given in ED, will hold for now with CHF in his history analgesics IV antibiotics trend lipase triglycerides ordered CT abd/pelvis noted pancreatic inflammation and edema C reactive protien 104 Hyponatermia Na133 IVF given in ED Monitor in AM labs Hypertension Resume appropriate home medications Hepatic masses Hiatal hernia noted on CT follow as outpatient Diet n.p.o. Full code DVT Lovenox Discharge Plan: Home Plan to discharge in: 24 Hours Physician Review: Patient Assessed, Agree with Above Assessment and Plan Time Spent Managing PTS Care (In Minutes): 35 <Emely Benavides - Last Filed: 06/03/23 11:09> - Plan Patient seen and examined. Plan of care discussed with Ms. Wilsoney Acute pancreatitis. Symptoms improving Patient is complaining of constipation Continue supportive measures Check lipid profile Advance diet. <steve huber - Last Filed: 06/05/23 15:13>
[2023-06-03] MEDS ORDERED: POLYETHYL GLY 3350 17 GM/DOSE PO PRN (11:10)
[2023-06-03] MEDS: ENOXAPARIN 40 MG/0.4 ML SQ SCH (16:20)
--- NOTE | 2023-06-03 17:46 | RAD REPORT ---
EXAM DESCRIPTION: RAD - Abdomen W Erect - 06/03/2023 5:29 pm CLINICAL HISTORY: pancreatitis COMPARISON: No comparisons TECHNIQUE: Single AP view of the abdomen. FINDINGS: Nonobstructive bowel gas pattern. No air-fluid levels, free air, or pneumatosis. No suspic ious calcifications. No significant bony abnormality. IMPRESSION: Negative two view abdomen examination.
[2023-06-03] MEDS: SIMETHICONE 80 MG CHEWABLE TAB PO PRN (22:13)
[2023-06-04] MEDS: METRONIDAZOLE 500mg IVPB 500 MG/100 ML BAG IV SCH ×2 (00:53→09:07)
[2023-06-04] MEDS: MORPHINE 2 MG/ML SYR IV PRN ×2 (02:12→06:17)
[2023-06-04 02:38] LABS: Absolute Lymphocytes (CBC) 1.2 K/uL (0.7-4.9); Lymphocytes % 13.6 % (15.3-44.8); MCV 90.4 fL (80-100); MPV 8.6 fL (7.6-11.3); Platelets 212 thou/uL (152-406); RBC Red Blood Cell Count 4.43 M/uL (4.33-5.43)
[2023-06-04 02:49] LABS: Magnesium 1.9 mg/dL (1.6-2.4); Potassium 3.9 mEq/L (3.5-5.1)
[2023-06-04] MEDS ORDERED: NEBIVOLOL HCL 5 MG TAB PO SCH (09:00)
[2023-06-04] MEDS ORDERED: POTASSIUM CL SA 10 MEQ TAB PO ONE (09:00)
[2023-06-04 09:13] VITALS: BP 140/81; TEMP 98.4
--- NOTE | 2023-06-04 12:30 | P.PN ---
Subjective Date of Service: 06/04/23 Chief Complaint: Abdominal pain Subjective: Doing well HPI 06/02: Damaso Coleman is a 58-year-old male with a past medical history of hypertension, presents to the emergency room with abdominal pain. He reports abdominal pain started 3 days ago, is progressively getting worse. He reports associated nausea, bloating. He reports lower abdominal pain, Nonradiating, no reported fever, vomiting. No reported use of alcohol. He denies chest pain, shortness of breath dizziness. Plan to admit for acute pancreatitis. Laboratory evaluation WBCs 12.80, early left shift 78.3, mild hyponatremia 133, BUN and creatinine normal, CRP elevated at 104.00, lipase normal at 26. UA normal EKG normal sinus rhythm a [address] wave [address]. CT of the abdomen pelvis FINDINGS: Lung bases: The lung bases are clear. There is minimal bibasilar atelectasis and/or fibrosis. Liver: The liver is mildly enlarged and measures approximately 19 cm in craniocaudal dimension. There are multiple sharply marginated hypodense hepatic mass lesions most likely representing incidental hepatic cysts. The largest measures approximately 2.5 x 2.3 cm along the lateral aspect of the right hepatic lobe. Liver attenuation is otherwise within normal limits. The hepatic and portal veins are patent. Spleen:The spleen is normal in size, configuration and attenuation. Gallbladder and bile duct: The gallbladder is well distended and unremarkable. There is no biliary ductal dilatation. Pancreas: The pancreas is grossly normal in size and configuration. There appears to be mild peripancreatic inflammation and edema surrounding the head of the pancreas which can be seen with acute pancreatitis. Correlate with laboratory analysis. Adrenal Glands:The adrenal glands are normal in size and configuration. Kidneys:The kidneys are normal in size and configuration. There is no evidence of hydronephrosis. There is no evidence of nephrolithiasis. No definite solid or cystic renal mass lesions are identified. Stomach:The stomach is grossly normal. There is a small hiatal hernia. Bowel:The bowel gas pattern is non specific and non obstructive. There is inflammation surrounding the transverse portion of the duodenum which may be due to adjacent inflammatory changes surrounding the head of the pancreas. There is moderate fecal residue in the right hemicolon. There is occasional sigmoid colon diverticulosis. There is a normal-appearing epiploic appendage along the posterior wall of the sigmoid colon (series 201, image 74). Appendix: The appendix is normal. Free air:There is no evidence of free air. Free fluid: There is questionable trace free fluid in the posterior left lower quadrant. Vasculature: The aorta is normal in caliber and contour. The inferior vena cava is grossly unremarkable. Lymphadenopathy: No pathologic lymphadenopathy is identified. Bladder: The bladder is well distended and smooth in contour. Reproductive: The prostate gland is grossly within normal limits 06/03: Damaso is awake and ambulating his room this morning. He is complaining of his distented abdomen and not having a BM in 2-[address] and US of abdomen is unremarkable for bowel but shows gas. Will start dulcolax and miralax today. He denies fever, chills, PATRICIA, CP, SOB, and N/V. 06/04: Damaso is feeling well, he is irritated by being in the hospital but states he hasn't had a BM yet. Abdominal xray negative for illeus, will advance diet to GI soft and continue to monitor. He denies fever, chills, CP, SOB, and N/V. Still complaining of some abdominal pain and distension. Review of Systems 10-point ROS is otherwise unremarkable Physical Examination - Vital Signs Temperature: 98.4 F Blood Pressure: 140/81 Pulse: 77 Respirations: 18 Pulse Ox (%): 97 Assessment And Plan - Plan Physical Exam General: Alert, In no apparent distress, Oriented x3 HEENT: Atraumatic, Normocephalic, PERRLA Neck: Supple, 2+ carotid pulse no bruit, JVD not distended Respiratory: Clear to auscultation bilaterally, Normal air movement Cardiovascular: No edema, Normal pulses, Regular rate/rhythm, Normal S1 S2 Capillary refill: <2 Seconds Gastrointestinal: Normal bowel sounds, Soft and benign, Distended Musculoskeletal: No clubbing, No swelling, No contractures Integumentary: No rashes, No breakdown Neurological: Normal speech, Normal strength at 5/5 x4 extr, Normal tone Assessment and plan acute pancreatitis Sigmoid diverticulosis Leukocytosis WBC 12.8 IV fluids given in ED, will hold for now with CHF in his history analgesics IV antibiotics trend lipase [address] abd/pelvis noted pancreatic inflammation and edema C reactive protien 104 abd xray negative for illeus, perforations, and fluid Lipid panel unremarkable Hyponatermia Na137 IVF given in ED Monitor in AM labs Hypertension Resume appropriate home medications Hepatic masses Hiatal hernia noted on CT follow as outpatient Diet GI soft Full code DVT Lovenox Discharge Plan: Home Plan to discharge in: 24 Hours Physician Review: Patient Assessed, Agree with Above Assessment and Plan Time Spent Managing PTS Care (In Minutes): 35
--- NOTE | 2023-06-04 13:21 | P.DS ---
Admission Date: 06/02/23 Discharge Date: 06/04/23 Reason for Admission: Abdominal pain - Problems (1) Pancreatitis, acute Status: Acute Brief History of Present Illness: Damaso Coleman is a 58-year-old male with a past medical history of hypertension, presents to the emergency room with abdominal pain. He reports abdominal pain started 3 days ago, is progressively getting worse. He reports associated nausea, bloating. He reports lower abdominal pain, Nonradiating, no reported fever, vomiting. No reported use of alcohol. He denies chest pain, shortness of breath dizziness. Plan to admit for acute pancreatitis. Laboratory evaluation WBCs 12.80, early left shift 78.3, mild hyponatremia 133, BUN and creatinine normal, CRP elevated at 104.00, lipase normal at 26. UA normal EKG normal sinus rhythm a [address] CT of the abdomen pelvis CT - Performed on: 06/02/2023 at 4:08 AM. Comparison: No prior studies were available for comparison. FINDINGS: Lung bases: The lung bases are clear. There is minimal bibasilar atelectasis and/or fibrosis. Liver: The liver is mildly enlarged and measures approximately 19 cm in craniocaudal dimension. There are multiple sharply marginated hypodense hepatic mass lesions most likely representing incidental hepatic cysts. The largest measures approximately 2.5 x 2.3 cm along the lateral aspect of the right hepatic lobe. Liver attenuation is otherwise within normal limits. The hepatic and portal veins are patent. Spleen:The spleen is normal in size, configuration and attenuation. Gallbladder and bile duct: The gallbladder is well distended and unremarkable. There is no biliary ductal dilatation. Pancreas: The pancreas is grossly normal in size and configuration. There appears to be mild peripancreatic inflammation and edema surrounding the head of the pancreas which can be seen with acute pancreatitis. Correlate with laboratory analysis. Adrenal Glands:The adrenal glands are normal in size and configuration. Kidneys:The kidneys are normal in size and configuration. There is no evidence of hydronephrosis. There is no evidence of nephrolithiasis. No definite solid or cystic renal mass lesions are identified. Stomach:The stomach is grossly normal. There is a small hiatal hernia. Bowel:The bowel gas pattern is non specific and non obstructive. There is inflammation surrounding the transverse portion of the duodenum which may be due to adjacent inflammatory changes surrounding the head of the pancreas. There is moderate fecal residue in the right hemicolon. There is occasional sigmoid colon diverticulosis. There is a normal-appearing epiploic appendage along the posterior wall of the sigmoid colon (series 201, image 74). Appendix: The appendix is normal. Free air:There is no evidence of free air. Free fluid: There is questionable trace free fluid in the posterior left lower quadrant. Vasculature: The aorta is normal in caliber and contour. The inferior vena cava is grossly unremarkable. Lymphadenopathy: No pathologic lymphadenopathy is identified. Bladder: The bladder is well distended and smooth in contour. Reproductive: The prostate gland is grossly within normal limits Hospital Course: Damaso Coleman is a pleasant 58 year old male with a past medical history significant hypertension who was admitted to the [facility] on 06/02/23 for Pancreatitis. Damaso presented to the ED with c/o abdominal pain associated with bloating that was progressively feeling worse. He reported no bowel movement in 2-3 days. He was unable to eat much and was concerned. The Abd CT reported mild inflammation of the pancreas. Damaso tolerated IVF, flagyl IV, and diet advancement. He is having flatulance, ambulating independently, and voiding well. On 06/04/23, Damaso was seen on morning rounds and deemed medically stable for discharge. Damaso was discharged with instructions to schedule follow-up appointments with PCP. 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 The patient and family members were given the opportunity to ask questions and reported no further questions. Furthermore, all questions were answered to the best of my ability. A copy of this discharge summary will be sent to the above providers to facilitate continuity of care. Today, I personally spent 55 minutes with Damaso, of which greater than 50% of the time was spent in patient education, counseling, and coordination of care as described above Physical Exam General: Alert, In no apparent distress, Oriented x3 HEENT: Atraumatic, Normocephalic, PERRLA Neck: Supple, 2+ carotid pulse no bruit, JVD not distended Respiratory: Clear to auscultation bilaterally, Normal air movement Cardiovascular: No edema, Normal pulses, Regular rate/rhythm, Normal S1 S2 Capillary refill: <2 Seconds Gastrointestinal: Normal bowel sounds, Soft and benign, Distended Musculoskeletal: No clubbing, No swelling, No contractures Integumentary: No rashes, No breakdown Neurological: Normal speech, Normal strength at 5/5 x4 extr, Normal tone <Emely Benavides - Last Filed: 06/04/23 17:11> Admission Date: 06/02/23 Discharge Date: 06/04/23 Hospital Course: Patient seen and examined. Abdominal pain resolved. Has been complaining about constipation. He has been tolerating diet. Benign abdomen physical examination. Lipid profile unremarkable. Idiopathic pancreatitis. Patient is deemed clinically stable for discharge. <steve huber - Last Filed: 06/05/23 14:43> Disposition: [place] [facility]/HOME HEALTH CARE Vital Signs/Physical Exam: Temp Pulse Resp BP Pulse Ox 98.4 F 77 18 140/81 97 06/04/23 12:37 06/04/23 12:37 06/04/23 12:37 06/04/23 12:37 06/04/23 12:37 Laboratory Data at Discharge: WBC 9.10 thou/uL (4.3-10.9) 06/04/23 02:28 Hgb 14.2 g/dL (13.6-17.9) 06/04/23 02:28 Hct 40.0 % (39.6-49.0) 06/04/23 02:28 Plt Count 212 thou/uL (152-406) 06/04/23 02:28 Sodium 137 mEq/L (136-145) 06/04/23 02:28 Potassium 3.9 mEq/L (3.5-5.1) 06/04/23 02:28 BUN 7 mg/dL (7-18) 06/04/23 02:28 Creatinine 0.82 mg/dL (0.70-1.30) 06/04/23 02:28 Glucose 106 mg/dL (74-106) 06/04/23 02:28 Magnesium 1.9 mg/dL (1.6-2.4) 06/04/23 02:28 Total Bilirubin 0.8 mg/dL (0.2-1.0) 06/02/23 03:17 AST 9 U/L (15-37) L 06/02/23 03:17 ALT 24 U/L (16-61) 06/02/23 03:17 Alkaline Phosphatase 59 U/L (45-117) 06/02/23 03:17 Triglycerides 71 mg/dL (<150) 06/04/23 02:28 Cholesterol 137 mg/dL (<200) 06/04/23 02:28 HDL Cholesterol 33 mg/dL (40-60) L 06/04/23 02:28 Cholesterol/HDL Ratio 4.15 06/04/23 02:28 Lipase 17 U/L (13-75) 06/03/23 08:14 <Emely Benavides - Last Filed: 06/04/23 17:11> Vital Signs/Physical Exam: Temp Pulse Resp BP Pulse Ox 98.4 F 77 18 140/81 97 06/04/23 08:00 06/04/23 09:06 06/04/23 12:00 06/04/23 08:00 06/04/23 08:00 Laboratory Data at Discharge: WBC 9.10 thou/uL (4.3-10.9) 06/04/23 02:28 Hgb 14.2 g/dL (13.6-17.9) 06/04/23 02:28 Hct 40.0 % (39.6-49.0) 06/04/23 02:28 Plt Count 212 thou/uL (152-406) 06/04/23 02:28 Sodium 137 mEq/L (136-145) 06/04/23 02:28 Potassium 3.9 mEq/L (3.5-5.1) 06/04/23 02:28 BUN 7 mg/dL (7-18) 06/04/23 02:28 Creatinine 0.82 mg/dL (0.70-1.30) 06/04/23 02:28 Glucose 106 mg/dL (74-106) 06/04/23 02:28 Magnesium 1.9 mg/dL (1.6-2.4) 06/04/23 02:28 Total Bilirubin 0.8 mg/dL (0.2-1.0) 06/02/23 03:17 AST 9 U/L (15-37) L 06/02/23 03:17 ALT 24 U/L (16-61) 06/02/23 03:17 Alkaline Phosphatase 59 U/L (45-117) 06/02/23 03:17 Triglycerides 71 mg/dL (<150) 06/04/23 02:28 Cholesterol 137 mg/dL (<200) 06/04/23 02:28 HDL Cholesterol 33 mg/dL (40-60) L 06/04/23 02:28 Cholesterol/HDL Ratio 4.15 06/04/23 02:28 Lipase 17 U/L (13-75) 06/03/23 08:14 <steve huber - Last Filed: 06/05/23 14:43> Diet: AHA Activity: Ad tomi Time spent managing pt's care (in minutes): 55 <Emely Benavides - Last Filed: 06/04/23 17:11> <steve huber - Last Filed: 06/05/23 14:43> Home Medications: Nebivolol HCl [Bystolic*] DAILY 06/02/23 Physician Discharge Instructions: 1. Establish care and follow up with PCP in one week 2. 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 No activity restrictions 6. return to ED if symptoms worsen 7. Hydrate well with water and electrolyte drinks such as body armor
[2023-06-04] MEDS ORDERED: POLYETHYL GLY 3350 17 GM/DOSE PO SCH (21:00)
== END 2023-06-04 14:25 | disposition home or self-care (01) | DRG 439 ==
LOC: ER 01:47 → ERHOLD 05:51 → 2ND 23:02
PROVIDERS: ADMIT Internal Medicine; ATTEND Internal Medicine
DX: K85.00 Idiopathic acute pancreatitis without necrosis or infection (principal); E87.1 Hypo-osmolality and hyponatremia; I10 Essential (primary) hypertension; K44.9 Diaphragmatic hernia without obstruction or gangrene; K76.89 Other specified diseases of liver; K59.00 Constipation, unspecified; K57.30 Diverticulosis of large intestine without perforation or abscess without bleeding; D72.829 Elevated white blood cell count, unspecified; R16.0 Hepatomegaly, not elsewhere classified; Z79.899 Other long term (current) drug therapy
CPT/HCPCS: 36415; 74019; 74177; 76705; 80048; 80053; 80061; 81001; 82550; 83690; 83735; 83880; 84478; 84484; 85025; 86140; 93005; 96361; 96374; 96375; 99285; J1650; J2270; J2405; J7030; Q2035; Q9967